=== PATIENT | female | born 1935 | race Caucasian/White ===

== ENCOUNTER 2018-09-09 15:22 | Emergency (ER) | payer MEDICARE, BC, SELFPAY ==
[2018-09-09 15:27] VITALS: BP 148/83; PULSE 99; RESP 18; TEMP 36.7; O2SAT 100
--- NOTE | 2018-09-09 15:58 | DI.RAD.S_ITS ---
PROCEDURE: XR CERVICAL SPINE 2V OR 3V INDICATIONS: Arm pain, tingling. TECHNIQUE: 3 view(s) of the cervical spine were acquired. COMPARISON: None. FINDINGS: Bones: No fractures or dislocations to the C7 level. The lateral masses of C1 appear intact on the odontoid view. No suspicious bony lesions. Straightening of the normal cervical lordosis. Diffuse facet arthropathy. Trace anterolisthesis of C4 on C5, and C3 on C4.. Moderate C5-C6 and C6-C7 disc degeneration. Prominent anterior right first rib costochondral calcification. Soft tissues: No prevertebral soft tissue swelling. IMPRESSION: Multilevel cervical disc degeneration and facet arthropathy, most pronounced at C5-C6 and C6-7. Diffuse facet arthropathy. Dictated by: Colby Sesay M.D. on 09/09/2018 at 17:00 Approved by: Colby Sesay M.D. on 09/09/2018 at 17:02
--- NOTE | 2018-09-09 15:58 | DI.CT.S_ITS ---
PROCEDURE: CT HEAD/BRAIN WO CON INDICATIONS: Pain, tingling in arm, intermittent. Had tia 1 month ago. TECHNIQUE: Noncontrast 4.5 mm thick angled axial sections acquired from the foramen magnum to the vertex, with coronal and sagittal reformats. For radiation dose reduction, the following was used: automated exposure control, adjustment of mA and/or kV according to patient size. COMPARISON: None. FINDINGS: Image quality: Excellent. CSF spaces: Basal cisterns are patent. No extra-axial fluid collections. The ventricles are symmetric in size and shape. Brain: No intracranial bleeds or masses. There is cerebral volume loss for age, with resultant ventricular and sulcal prominence. There are periventricular and deep white matter chronic small vessel ischemic changes. There is intracranial internal carotid artery atherosclerosis. Skull and face: Calvarium and visualized facial bones appear intact, without suspicious lesions. Sinuses: Minimal fluid in the left sphenoid sinus. IMPRESSION: No acute intracranial process. Dictated by: Colby Sesay M.D. on 09/09/2018 at 16:56 Approved by: Colby Sesay M.D. on 09/09/2018 at 16:58
--- NOTE | 2018-09-09 16:01 | ED.NEUROSD ---
HPI - Neuro Symptoms/Deficit General Chief Complaint: Neuro Symptoms/Deficit Stated Complaint: FOGGY BLOOD PRESSURE IS CRAZY Time Seen by Provider: 09/09/18 15:58 Source: patient, old records reviewed and other (friend) Mode of arrival: ambulatory Limitations: no limitations History of Present Illness HPI Narrative: Is an 82-year-old female who comes to the emergency department with complaint of feeling foggy in her thinking. Patient states that she had a TIA about a month ago. At that time she had slurred speech, her thinking was foggy or she was confused and she had weakness and numbness in her left upper extremity. Patient states she was sent to [facility] she was discharged from the emergency department but told to change from her aspirin to Plavix. Patient states she had imaging done recently that included ECHO, carotids Um and these were negative. She felt foggy and had somewhat similar symptoms complaining of pain and numbness in her arm on and was flown to [facility] for evaluation. She states that her imaging was reviewed on and she was discharged home but told to take Plavix and aspirin. Patient states she continues to have a numb feeling and pain in her arm particularly the hand and lower arm. She states that it feels almost swollen or full although she does not note any swelling. This was similar to what it felt like when she had the TIA. She states when she had the TIA she had if occult he with data warehouse specialist and picking things up and this happened sometimes but not to the same extent. She denies any current headache, no chest pain or shortness of breath. No nausea or vomiting. She has had some diarrhea but no other stool changes. 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 She has a history of mixed hyperlipidemia, no hypertension. She does not have diabetes. 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 She mentions having issues more in her extremity at nighttime but states there is no real correlation between night and day. On Anticoagulants: Yes (plavix) Related Data Home Medications Medication Instructions Recorded Confirmed ASPIRIN (Aspirin EC) 81 mg PO Q DAY #0 03/22/11 Fish Oil 2,000 mg PO #0 03/22/11 [TYLENOL] PRN #0 03/22/11 ascorbic acid (vitamin C) 500 mg PO QDAY #0 07/08/17 cyanocobalamin (vitamin B-12) 500 mcg PO #0 07/08/17 [Vitamin B-12] ibuprofen 200 mg PO PRN #0 07/08/17 melatonin 3 mg PO HS PRN #0 07/08/17 Previous Rx's Medication Instructions Recorded trazodone 0 PO HSP PRN #90 tabs 09/27/16 Disabled Parking Permit ea #1 06/23/17 diclofenac sodium [Voltaren] 1 thong TOPICAL SEE INSTRUCTIONS 07/08/17 #100 gm Allergies Allergy/AdvReac Type Severity Reaction Status Date / Time codeine [CODEINE] Allergy Intermediate GI UPSET Verified 09/09/18 16:27 Review of Systems Review of Systems All systems reviewed & are unremarkable except as noted in HPI and below Constitutional Denies fever(s), Denies headache(s) and Denies weakness Eyes Denies change in vision ENT Ears, Nose, Mouth, and Throat: Denies headache(s) and Denies disequilibrium Cardiovascular Denies chest pain, Denies syncope, Reports edema (chronic in leg), Denies irregular heart rhythm, Denies lightheadedness, Denies palpitations, Denies dyspnea and Denies orthopnea Respiratory Denies chest congestion, Denies cough and Denies dyspnea Gastrointestinal Gastrointestinal: Denies abdominal pain, Denies change in bowel habits, Reports diarrhea (intermittent), Denies nausea and Denies vomiting Genitourinary Denies hematuria, Denies flank pain, Denies urinary incontinence and Denies urinary urgency Musculoskeletal Denies atrophy, Denies deformity, Denies arthralgias, Denies joint swelling, Denies limited range of motion, Reports muscle weakness (when had TIA 1 month ago), Reports numbness (decreased sensation) and Reports other (pain right lower arm.) Integumentary/Breasts Denies lesions and Denies rash Neurologic Denies syncope, Denies headache(s), Reports focal weakness (TIa 1 month ago.), Reports numbness (decreased sensation), Reports paresthesias, Denies disequilibrium and Denies weakness Endocrine Denies palpitations [facility] Social History Smoking Status: Never smoker Exam Narrative Exam Narrative: GEN: well nourished, well appearing elderly female, alert and oriented x 3, patient appears to be in no acute distress. HEENT: Atraumatic, pupils are equal round reactive to light, extraocular movements are intact,no facial droop, no dysarthria HEART: Regular rate and rhythm without murmur, clicks, rubs. Pulses are equal in upper and lower extremities LUNGS:Lungs clear to auscultation, no wheezes, rales, crackles, chest moves symmetrically ABD:bowel sounds normal, soft, non-tender, no guarding, rebound, rigidity, no masses noted, no hepatosplenomegaly MSCL: Non-tender, no muscle atrophy, muscles strength 5/5 upper and lower extremities, data integration architect equal bilateral upper extremities, full range of motion NEURO:CN 2-12 intact, sensation normal bilateral upper extremities and hands, reflexes 2/4 upper and lower extremities. finger nose finger test normal, heel arnett test normal, romberg normal Initial Vital Signs Initial Vital Signs: Vital Signs Temperature 98.1 F 09/09/18 15:27 Pulse Rate 99 H 09/09/18 15:27 Respiratory Rate 18 09/09/18 15:27 Blood Pressure 148/83 H 09/09/18 15:27 Pulse Oximetry 100 09/09/18 15:27 Course Orders Ordered: ED Orders 09/09/18 15:58 CT head/brain wo con Stat XR cervical spine 2V or 3V Stat EKG-12 Lead Stat 09/09/18 16:05 Complete Blood Count AUTO DIFF Stat Comprehensive Metabolic Panel Stat Partial Thromboplastin Time Stat Prothrombin Time INR Stat Troponin I Stat Discontinued Medications Sodium Chloride (Normal Saline 0.9%) 1,000 mls @ 150 mls/hr IV CONT CHANELL Last Infusion: 09/09/18 18:04 Dose: 0 mls/hr Admin: 09/09/18 16:27 Dose: 150 mls/hr Vital Signs - 8 hr 09/09/18 15:27 09/09/18 16:13 09/09/18 16:45 Temperature 98.1 F Pulse Rate 99 H 85 88 Respiratory Rate 18 15 19 Blood Pressure 148/83 H Blood Pressure [Left Arm] 149/79 H 135/52 L Pulse Oximetry 100 98 99 09/09/18 17:00 09/09/18 17:50 09/09/18 18:05 Temperature Pulse Rate 87 93 H 98 H Respiratory Rate 18 23 Blood Pressure 158/68 H Blood Pressure [Left Arm] 109/46 L 158/68 H Pulse Oximetry 100 100 MDM - Neuro Symptoms/Deficit Lab Data Attestation: I reviewed the patient's lab results. Result diagrams: 09/09/18 16:05 09/09/18 16:05 Lab Results 09/09/18 09/09/18 09/09/18 Range/Units 16:05 16:05 16:05 WBC 6.0 (4.5-11.0) X10^3/uL RBC 4.28 (4.0-5.2) X10^6/uL Hgb 13.3 (12.0-16.0) g/dL Hct 40.7 (36-46) % MCV 95.0 (80-100) fL MCH 31.1 (26-34) PG MCHC 32.8 (30-36) % RDW 12.8 (11.6-14.8) % Plt Count 216 (150-400) X10^3/uL Neut % (Auto) 60.4 (50-75) % Lymph % (Auto) 30.0 (25-40) % [place] % (Auto) 8.0 (3-14) % Eos % (Auto) 0.9 L (2-4) % Baso % (Auto) 0.7 (0-2) % Neut # (Auto) 3600 (6286-9293) /uL PT 11.9 (10.1-12.7) SECONDS INR 1.1 (0.9-1.3) APTT 29 (26.4-36.2) SECONDS Sodium 144 (137-145) mmol/L Potassium 3.8 (3.4-5.1) mmol/L Chloride 105 (98-107) mmol/L Carbon Dioxide 27 (22-32) mmol/L BUN 11 (7-17) mg/dL Creatinine 0.50 L (0.52-1.04) mg/dL Estimated GFR > 60.0 (>60) mL/min BUN/Creatinine Ratio 22.0 (6-22) Glucose 104 (80-110) mg/dL Calcium 8.7 (8.4-10.2) mg/dL Total Bilirubin 0.3 (0.2-1.3) mg/dL AST 25 (14-36) IU/L ALT 24 (9-52) IU/L Alkaline Phosphatase 153 H (38-126) U/L Troponin I < 0.012 (0.01-0.034) ng/mL Total Protein 6.7 (6.3-8.2) g/dL Albumin 4.2 (3.5-5.0) g/dL Globulin 2.5 (1.7-4.1) g/dL Albumin/Globulin Ratio 1.7 (1.0-2.8) Urine Dip Bedside Urine Glucose Negative Bedside Urine Bilirubin - Negative Bedside Urine Ketone - Negative Urine Specific [place] 1.025 Bedside Urine Occult Blood - Negative Bedside Urine pH 6.0 Bedside Urine Protein - Negative Bedside Urine Urobilinogen - Negative Bedside Urine Nitrite - Negative Bedside Urine Leukocytes - Negative Esterase Imaging Data CT scan - head: Radiologist's impression: [address] [address] [address] Scan Report Signed Patient: Pennie MonteroMR#: [id number] : 4Acct:[id number] Age/Sex: 82 / FDate of Service: 09/09/18 Loc: ED Accession Number: [id number] Procedure: CT head/brain wo con Ordering Provider: Jessica Alvarez D.O. PROCEDURE: CT HEAD/BRAIN WO CON INDICATIONS: Pain, tingling in arm, intermittent. Had tia 1 month ago. TECHNIQUE: Noncontrast 4.5 mm thick angled axial sections acquired from the foramen magnum to the vertex, with coronal and sagittal reformats. For radiation dose reduction, the following was used: automated exposure control, adjustment of mA and/or kV according to patient size. COMPARISON: None. FINDINGS: Image quality: Excellent. CSF spaces: Basal cisterns are patent. No extra-axial fluid collections. The ventricles are symmetric in size and shape. Brain: No intracranial bleeds or masses. There is cerebral volume loss for age, with resultant ventricular and sulcal prominence. There are periventricular and deep white matter chronic small vessel ischemic changes. There is intracranial internal carotid artery atherosclerosis. Skull and face: Calvarium and visualized facial bones appear intact, without suspicious lesions. Sinuses: Minimal fluid in the left sphenoid sinus. IMPRESSION: No acute intracranial process. Dictated by: Colby Sesay M.D. on 09/09/2018 at 16:56 Approved by: Colby Sesay M.D. on 09/09/2018 at 16:58 C-spine x-ray: Radiologist's impression: [address] [address] XRay Report Signed Patient: Pennie MonteroMR#: [id number] : 1935Acct:[id number] Age/Sex: 82 / FDate of Service: 09/09/18 Loc: ED Accession Number: [id number] Procedure: XR cervical spine 2V or 3V Ordering Provider: Jessica Alvarez D.O. PROCEDURE: XR CERVICAL SPINE 2V OR 3V INDICATIONS: Arm pain, tingling. TECHNIQUE: 3 view(s) of the cervical spine were acquired. COMPARISON: None. FINDINGS: Bones: No fractures or dislocations to the C7 level. The lateral masses of C1 appear intact on the odontoid view. No suspicious bony lesions. Straightening of the normal cervical lordosis. Diffuse facet arthropathy. Trace anterolisthesis of C4 on C5, and C3 on C4.. Moderate C5-C6 and C6-C7 disc degeneration. Prominent anterior right first rib costochondral calcification. Soft tissues: No prevertebral soft tissue swelling. IMPRESSION: Multilevel cervical disc degeneration and facet arthropathy, most pronounced at C5-C6 and C6-7. Diffuse facet arthropathy. Dictated by: Colby Sesay M.D. on 09/09/2018 at 17:00 Approved by: Colby Sesay M.D. on 09/09/2018 at 17:02 ECG Data Attestation: I personally reviewed and interpreted this ECG as follows: Interpretation: Sinus rhythm with a rate of 89, P are 163 QRS of 92 and QTC of 388. nonspecific change. MDM Narrative Medical decision making narrative: reviewed patient's hospital stay from 09/07/2018 which patient was treated for TIA. Patient was discharged home from the ED. She had CT Um as well as lab work done which showed no acute changes. There was some central atrophy and small-vessel ischemic changes. Patient has had what she describes more as pain in her left upper extremity. She had weakness and difficulty with data warehouse specialist when she had her TIA but has not had any clear weakness. She states she has decreased sensation but on physical exam she has normal sensation and tells me it feels the same on left versus right. By her description I suspect she may be having some radiculopathy, CT of the head was negative today, C-spine x-ray shows some C5 through C7 degenerative disc changes which may be causing some cervical radiculopathy. I discussed with patient and her friend at bedside that I cannot guarantee that there is not another cause. We did discuss that getting an MRI possibly of the brain as well as the spine may be helpful to delineate her symptoms, From radiculopathy versus CVA versus multiple TIAs although she is not having any other major symptoms. She is not having any swelling or other symptoms that are concerning for DVT. I did encourage her to continue her aspirin as well as Plavix. She is not having any other focal neurologic changes Um and have none on her physical exam today. Patient is comfortable with this plan in returning home at this time. Plan for her to follow up with her primary care physician. She thought she may have had an MRI at [facility] but is unsure. Discharge Plan Departure Patient Disposition: Home Clinical Impression: Arm pain, left Discharge Date/Time: 09/09/18 18:04 Interventions: ED Discharge Assessment Last Done: 09/09/18 18:05 Activity Restrictions/Additional Instructions: Follow up with Dr. Hansen in the next 3-5 days for recheck. Talk with your physician about if MRI if brain and/or neck would be appropriate for follow up imaging. Continue your aspirin and plavix. You may take tylenol as needed for pain. Return to ER for new weakness, swelling of your arm, color changes, chest pain, shortness of breath, passing out or new concerning symptoms. Prescriptions: No Action ASPIRIN (Aspirin EC) 81 mg PO Q DAY Qty: 0 RF: 0 Fish Oil 2,000 mg PO Qty: 0 RF: 0 [TYLENOL] PRN Qty: 0 RF: 0 trazodone 100 MG tablet PO HSP PRNQty: 90 RF: 3 Disabled Parking Permit Qty: 1 RF: 0 ibuprofen 200 MG capsule 200 mg PO PRNQty: 0 RF: 0 melatonin 3 MG tablet 3 mg PO HS PRNQty: 0 RF: 0 cyanocobalamin (vitamin B-12) [Vitamin B-12] 500 MCG lozenge 500 mcg PO Qty: 0 RF: 0 ascorbic acid (vitamin C) 500 MG tablet 500 mg PO QDAY Qty: 0 RF: 0 diclofenac sodium [Voltaren] 1 % gel 1 thong Topical SEE INSTRUCTIONS Qty: 100 RF: 1
[2018-09-09 16:13] VITALS: BP 149/79; PULSE 85; RESP 15; O2SAT 98
--- NOTE | 2018-09-09 16:15 | PC.NURSE ---
pt reports, hx of tia 4 weeks ago, a week later developed base of thumb and all fingers with numbness, not weakness, denies injuries/trauma. radial pulses present. denies headache, denies visual changes, denies balance issue, fast exam negative. female at bs.
[2018-09-09 16:16] LABS: Add Manual Diff / Slide Review NO; Basophils Percent Auto 0.7 % (0-2); Eosinophils Percent Auto 0.9 % (2-4); Hematocrit 40.7 % (36-46); Hemoglobin 13.3 g/dL (12.0-16.0); Mean Corpuscular HGB Conc 32.8 % (30-36); Mean Corpuscular Hemoglobin 31.1 PG (26-34); Neutrophils Absolute Auto 3600 /uL (3000-5900); Neutrophils Percent Auto 60.4 % (50-75); Platelet Count 216 X10^3/uL (150-400); Red Blood Cell Count 4.28 X10^6/uL (4.0-5.2); Red Cell Distribution Width 12.8 % (11.6-14.8)
[2018-09-09 16:23] LABS: Alanine Aminotransferase 24 IU/L (9-52); Albumin 4.2 g/dL (3.5-5.0); Albumin Globulin Ratio 1.7 (1.0-2.8); Alkaline Phosphatase 153 U/L (38-126); Aspartate Aminotransferase 25 IU/L (14-36); Bilirubin Total 0.3 mg/dL (0.2-1.3); Blood Urea Nitrogen 11 mg/dL (7-17); Calcium 8.7 mg/dL (8.4-10.2); Carbon Dioxide 27 mmol/L (22-32); Chloride 105 mmol/L (98-107); Estimated Glomerular Filt Rate > 60.0 mL/min (>60); Globulin 2.5 g/dL (1.7-4.1); Glucose 104 mg/dL (80-110); HEMOLYSIS < 15 (0-50); Potassium 3.8 mmol/L (3.4-5.1); Sodium 144 mmol/L (137-145); Total Protein 6.7 g/dL (6.3-8.2)
[2018-09-09] MEDS: SODIUM CHLORIDE 0.9% 1,000 ML 150 ML IV (16:27)
[2018-09-09 16:35] LABS: INR 1.1 (0.9-1.3); PTT Partial Thromboplastin Tim 29 SECONDS (26.4-36.2); Prothrombin Time 11.9 SECONDS (10.1-12.7)
[2018-09-09 16:45] VITALS: BP 135/52; PULSE 88; RESP 19; O2SAT 99
[2018-09-09 17:00] VITALS: BP 109/46; PULSE 87; RESP 18; O2SAT 100
[2018-09-09 17:15] LABS: Troponin I < 0.012 ng/mL (0.01-0.034)
--- NOTE | 2018-09-09 17:33 | PC.NURSE ---
with cane, slow but with steady gait.
[2018-09-09 17:50] VITALS: BP 158/68; PULSE 93; RESP 23; O2SAT 100
--- NOTE | 2018-09-09 17:50 | PC.NURSE ---
dr stevenson at . pt tolerating drinking water po.
[2018-09-09 18:05] VITALS: BP 158/68; PULSE 98
== END 2018-09-09 18:04 | disposition home or self-care (01) ==
PROVIDERS: Emergency Provider Emergency Medicine; Family Provider Family Medicine; PCP Family Medicine
DX: M79.602 Pain in left arm (principal); R41.82 Altered mental status, unspecified
CPT/HCPCS: 36591; 70450; 72040; 80053; 81003; 84484; 85025; 85610; 85730; 93005; 93041; 96360; 96361; 99285; 99291

== ENCOUNTER 2019-01-01 11:44 | Inpatient (IN) | payer MEDICARE, BC, SELFPAY ==
[2019-01-01] VITALS (18 sets, daily range): BP systolic 87–151; BP diastolic 35–79; PULSE 67–100; RESP 12–20; TEMP 35.6–36.5; O2SAT 91–99; BMI 33.5
--- NOTE | 2019-01-01 | DI.RAD.S_ITS ---
PROCEDURE: XR HIP W PEL IF DONE RT 2V INDICATIONS: RIGHT TOTAL HIP POST OPERATIVE TECHNIQUE: 2 view(s) of the hip acquired. COMPARISON: [facility], [facility], XR HIP W PEL IF DONE RT 2V, 01/01/2019, 16:29. FINDINGS: Bones: Patient is status post right hip arthroplasty, with hardware components in expected positions. The hip joint appears congruent. The visualized bony structures appear intact. Soft tissues: Overlying postoperative changes are noted. No suspicious soft tissue densities. IMPRESSION: Expected appearance post total right hip arthroplasty. Dictated by: Luis Acuna M.D. on 01/01/2019 at 19:09 Approved by: Luis Acuna M.D. on 01/01/2019 at 19:10
--- NOTE | 2019-01-01 06:00 | DI.RAD.S_ITS ---
PROCEDURE: XR HIP W PEL IF DONE RT 2V INDICATIONS: right total hip TECHNIQUE: AP pelvis and lateral view of the right hip acquired. COMPARISON: [facility], [place], XR HIP W PEL IF DONE RT 2V, 01/01/2019, 17:53. [facility], [place], XR PELVIS WITH LATERAL HIP RIGHT, 10/20/2018, 13:18. FINDINGS: Bones: Patient is status post right hip arthroplasty, with hardware components in expected positions. The hip joint appears congruent. The visualized bony structures appear intact. Soft tissues: Overlying postoperative changes are noted. No suspicious soft tissue densities. IMPRESSION: 1. Right hip arthroplasty in anatomic alignment. Dictated by: Maggie Poole M.D. on 01/02/2019 at 11:26 Approved by: Maggie Poole M.D. on 01/02/2019 at 11:27
[2019-01-01] MEDS: ACETAMINOPHEN 325 MG TABLET 975 MG PO (12:57)
[2019-01-01] MEDS: VANCOMYCIN 1,000 MG/200 ML FROZ.PIGGY 200 MG IV (13:33)
--- NOTE | 2019-01-01 14:40 | PM.PREOP ---
Pre-operative Note Interval Note History & Physical reviewed/Exam performed by Physician: Yes Changes to H&P: No
--- NOTE | 2019-01-01 14:45 | P.OP_ITS ---
Operative Date/Time/Diagnoses Date of procedure: 01/01/19 Time of procedure: 14:59 Pre-op diagnosis: right hip OA Post-op diagnosis: same Procedure & Clinicians Procedure: right total hip arthroplasty Same procedure as scheduled: Yes Indications: severe right hip osteoarthritis with ongoing pain. risk of complications including dislocation, infection, fracture and medical complications discussed in detail. Surgeon: Yovana Whiteside Information Security Engineer: Mikael Langley Anesthesia Type: General and Spinal Operative Notes Findings: Severe right hip osteoarthritis Closure Type: primary Specimen(s): none sent Prosthetic devices, grafts, tissues, transplants, or devices: Whiteside and Nephew R3 56, anthology size 8 high offset, -3 by 36 Applied: drain(s) Estimated Blood Loss (mL): 250 Blood products transfused: none Procedure in detail: The patient was seen in the pre-operative area, where the patient identified the right hip as the operative site and this was marked with my initials. The patient received pre-operative antibiotics and was taken to the operating room and placed on the operative table in the left lateral decubitus position after satisfactory anesthesia. A multimedia manager out was performed. The right leg was prepared from the ankle to the iliac crest with ChloroPrep in the usual fashion and draped through sterile drapes. The hip was approached through an approximately 20 cm incision centered over the greater trochanter and curving gently posteriorly as it went proximally. This was carried sharply to the fascia lakisha, which was divided and retracted with a self retaining retractor. The trochanteric bursa was excised with care being taken to avoid the sciatic nerve, which was identified and protected throughout the case. The short external rotators were incised and the capsulomuscular flap was raised and tagged for later repair. The hip was dislocated, and a femoral neck osteotomy performed approximately 15 mm above the lesser trochanter. Retractors were placed around the femur. The canal was opened with a box cutting osteotome, followed by a T handled reamer and a lateralizing reamer. The chili pepper broach was then used, followed by sequential broaching until there was good stability of the broach in the femur. Retractors were placed to expose the acetabulum. The labrum and central soft tissues were removed. Reaming was performed initially going up in 2 mm increments, then 1 mm increments until good bite was obtained with an odd sized reamer. The cup 1 mm larger than the last reamer was then inserted using the appropriate anteversion guides. A trial neutral liner was placed. The broach was placed in the canal. A trial head and neck were then placed and the hip relocated and checked for leg length and stability. An intraoperative film confirmed the component position and no evidence of fracture. The patient was stable in the position of sleep, of squatting, and could be put through a range of motion with 45 degrees internal rotation without dislocation. At 90 degrees flexion, internal rotation to 60 was possible before dislocation. This was felt to be satisfactory and the appropriate components were opened, and the trials were removed. The acetabular liner was impacted into position. The final stem was then impacted into the prepared femoral canal. A brief Betadine soak was performed while trialing with head options. The hip was meticulously irrigated with normal saline. Finally the femoral head was impacted onto the stem. The acetabulum was cleared of all material and the hip relocated one final time. The capsulomuscular flap was then repaired to the greater trochanter though an awl hole using the tag sutures. The short external rotators were repaired with a nonabsorbable suture. A deep drain was placed and brought out anteriorly. The fascia lakisha was closed with Vicryl. The subcutaneous layer was closed with barbed sutures and [place]. An Aquacel Ag dressing was applied and the patient was taken to recovery having tolerated the procedure well. Complications: none Condition: stable Disposition: Acute Care Plan for aftercare: The patient will be maintained on a standard total hip replacement protocol with weight bearing as tolerated and posterior hip precautions. The patient will receive Aspirin and sequential compression devices for DVT prophylaxis. The patient will be discharged home when safe for the home environment.
[2019-01-01] MEDS: CEFAZOLIN 2 GM/100 ML FROZ.PIGGY IV (15:20)
--- NOTE | 2019-01-01 15:55 | SUR.OPER ---
Lateral on padded OR bed. Gel axillary roll. Arms secured on padded armboard with pillow supporting top arm. Padded hip positioner braces x4 - anterior and posterior chest and pelvis. Additional gel pad used anterior pelvis. Gel pad under bottom leg from knee to foot and secured with tape over sheet.
[2019-01-01] MEDS: BUPIVACAINE 0.25% W/ EPI VIAL 50 ML INJ (16:05)
[2019-01-01] MEDS: SODIUM CHLORIDE IRRIG SOLUTION 250 ML, EPINEPHrine 1 MG IRR (16:05)
[2019-01-01] MEDS: POVIDONE-IODINE 15 ML, SODIUM CHLORIDE 0.9% 250 ML TOP (16:06)
[2019-01-01] MEDS: BUPIVACAINE LIPOSOME 266 MG/20 ML VIAL INJ (16:09)
--- NOTE | 2019-01-01 16:10 | SUR.OPER ---
GLASSES IN LABELED BAG TO PACU WITH PATIENT
[2019-01-01] MEDS: LACTATED RINGERS 1,000 ML 42 ML IV (17:03)
--- NOTE | 2019-01-01 18:09 | SUR.PHASEI ---
Repetitive questions when awake. When asleep sats drop to <90%, but awake to mid 90's on NC 4L.
--- NOTE | 2019-01-01 18:45 | SUR.PHASEI ---
IVF opened on arrival due to low BPs. Preop SBP >150. Once patient awake, she related normal BPs in 110's. Fluids reduced. Stable PACU course excepting some decreased sats with somnolent states and will transfer with NC 2L. No shivering. No pain.
[2019-01-01] MEDS: TRAMADOL 50 MG TABLET PO (21:41)
--- NOTE | 2019-01-01 22:13 | PC.NURSE ---
Addendum entered and electronically signed by Jessica Stout R.N. 01/01/19 23:22: 2300- Hemovac 150cc output. Surgeon paged; no new orders received. Original Note: 1899- Pt arrived from PACU PO R knee arthroplasty w/ hemovac in place. Arrived on 2L w/ sats @ 100%; weaned down to 1L. Denies pain at this time, pt had spinal block during procedure. Pulses palpable on both feet; family at bedside. Daughter states pt has baseline dementia. NO BP & LAB DRAWS ON L SIDE. 2009- Assessment complete; new order for diet as tolerated. Pudding & cocoa drink given to pt and tolerated w/ no nausea reported. 2099- PO tramadol given to pt and swallowed w/o difficulty. Daughter left for the night, bed alarm applied. Pt tolerating toast & peanut butter.
[2019-01-02 00:55] VITALS: BP 166/70; PULSE 104; RESP 19; O2SAT 96
--- NOTE | 2019-01-02 01:00 | PC.NURSE ---
Addendum entered by Andie Mckay R.N. 01/02/19 04:58: 0330 Voided 125cc on bed smith, plus incontinent of some urine on bedding. Tried on RA but sats dropped down as low as 84% so back on 0.5L/min with sat of 94%. Original Note: Patient is alert and oriented. Breath sounds CTA with sat of 98% while on oxygen at 1L/min per NC; decreased O2 to 0.5L/min. HRR. Denies nausea. BT absent and denies flatus. 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 Dressing to right hip is CDI. Hemovac was intact but during repositioning patient pulled hemovac apart. Reconnected but uncertain if suction is functional anymore. Denies pain. Was able to turn self in bed. CMS intact although pedal pulses are weak. Wearing bilateral SCD's. Fall risk score is high and bed alarm is activated.
[2019-01-02 06:00] VITALS: BP 111/47; PULSE 75; RESP 17; TEMP 36.3; O2SAT 99
[2019-01-02 09:00] VITALS: PULSE 82; RESP 16; TEMP 35.8; O2SAT 97
[2019-01-02] MEDS: SODIUM CHLORIDE 0.9% FLUSH 10 ML IV ×2 (09:14→20:30)
[2019-01-02] MEDS: CLOPIDOGREL 75 MG TABLET PO (09:14)
[2019-01-02] MEDS: ATORVASTATIN 20 MG TABLET 40 MG PO (09:14)
[2019-01-02] MEDS: TRAMADOL 50 MG TABLET PO ×2 (09:18→20:32)
[2019-01-02 09:19] LABS: Hematocrit 29.1 % (36-46); Hemoglobin 9.7 g/dL (12.0-16.0); Mean Corpuscular HGB Conc 33.4 % (30-36); Mean Corpuscular Volume 95.7 fL (80-100); Platelet Count 250 X10^3/uL (150-400); Red Blood Cell Count 3.04 X10^6/uL (4.0-5.2); White Blood Cell Count 11.1 X10^3/uL (4.5-11.0)
--- NOTE | 2019-01-02 09:23 | PM.PNPO.1 ---
Subjective Date Patient Seen: 01/02/19 Time Patient Seen: 09:23 Interval history: Hospital day 2, postop day 1 following right posterior total hip arthroplasty by Dr. Whiteside. Patient remained stable postoperatively. Her Hemovac did come apart during the night was restarted with good vacuum. Hemovac drainage last shift 60 mL. Pain is been minimal and did take 1 tramadol tablet. She has not had any physical therapy yet. Patient lives on [place] and is scheduled to go to [facility]. She does have a daughter at home that will help her. Exam Vital Signs (past 8 hours): - 01/02/19 06:00 Temperature 97.4 F L Pulse Rate 75 Respiratory Rate 17 Blood Pressure 111/47 L Pulse Oximetry 99 Oxygen Delivery Method Nasal Cannula Oxygen Flow Rate 0.5 Narrative Exam Narrative: Alert, oriented no acute distress resting in bed. Legs. Aquacel dressing to right hip is dry without drainage or inflammation. Small area of shadowing. Hemovac in place. No calf pain or swelling. Pulses symmetrical. Objective Labs Result Diagrams: 01/02/19 08:50 Assessment & Plan Post-op Postoperative Procedures Operation Date: 01/01/19 13:45 Actual Procedures Side Surgeon p Total Hip Arthroplasty Right Yovana Whiteside MD Plan: Patient will work with PT today. Anticipate DC Hemovac once her drainage has decreased. Anticipate discharge home possibly tomorrow the next day if she is stable. Quality VTE Deep Vein Thrombosis/Pulmonary Embolism Present on Admission: No
--- NOTE | 2019-01-02 09:26 | P.PN_ITS ---
Subjective Date Patient Seen: 01/02/19 Time Patient Seen: 09:23 Interval history: Hospital day 2, postop day 1 following right posterior total hip arthroplasty by Dr. Whiteside. Patient remained stable postoperatively. Her Hemovac did come apart during the night was restarted with good vacuum. Hemovac drainage last shift 60 mL. Pain is been minimal and did take 1 tramadol tablet. She has not had any physical therapy yet. Patient lives on [place] and is scheduled to go to [facility]. She does have a daughter at home that will help her. Exam Vital Signs (past 8 hours): - 01/02/19 06:00 Temperature 97.4 F L Pulse Rate 75 Respiratory Rate 17 Blood Pressure 111/47 L Pulse Oximetry 99 Oxygen Delivery Method Nasal Cannula Oxygen Flow Rate 0.5 Narrative Exam Narrative: Alert, oriented no acute distress resting in bed. Legs. Aquacel dressing to right hip is dry without drainage or inflammation. Small area of shadowing. Hemovac in place. No calf pain or swelling. Pulses symmetrical. Objective Labs Result Diagrams: 01/02/19 08:50 Assessment & Plan Post-op Postoperative Procedures Operation Date: 01/01/19 13:45 Actual Procedures Side Surgeon p Total Hip Arthroplasty Right Yovana Whiteside MD Plan: Patient will work with PT today. Anticipate DC Hemovac once her drainage has decreased. Anticipate discharge home possibly tomorrow the next day if she is stable. Quality VTE Deep Vein Thrombosis/Pulmonary Embolism Present on Admission: No
[2019-01-02] MEDS: DOCUSATE 100 MG CAPSULE PO ×2 (09:31→20:30)
[2019-01-02] MEDS: SENNOSIDES 8.6 MG TABLET PO ×2 (09:32→20:30)
--- NOTE | 2019-01-02 10:37 | CM.DANOTE ---
DCP: Case received, EMR reviewed and met with patient. Introduced self and role. DCP template completed with information currently available. Patient is an 83 year old female who admitted yesterday morning to the care of the surgical team. PCP: Dr. Hansen. Payer: confirmed: Medicare/BCBS [facility]. Patient came to hospital for surgical procedure. Had R. Total Hip surgery. Met with patient in her room. Her daughter, Javier, is here from [place]. She plans on staying with her on [place] after her surgery. She gave her phone number: [phone]. Patient has history of osteoarthritis, as well as Polio. Asked her if she had caregivers in the home, which was stated in the report. Stated, she does not, but she lives in [place] with plenty of neighbors, and has advocates. She already has outpatient physical therapy set up. Has not yet worked with physical therapy. P: DCP to continue to follow. Should be able to go home when stable, but will also need to be cleared by physical therapy as well. Magi Cruz RN/[employer]inery [employer] Worker
[2019-01-02] MEDS: CEFAZOLIN 2 GM/100 ML FROZ.PIGGY IV ×2 (10:58→20:58)
--- NOTE | 2019-01-02 11:40 | PT.IIE ---
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 (01/01/19) Surgery Performed Operation Date: 01/01/19 13:45 Actual Procedures p Total Hip Arthroplasty(Right) - Yovana Whiteside MD Physical Therapy Inpatient Evaluation/Re-Eval M1 PT/OT-IP Prior Functional Status Start: 01/02/19 10:36 Freq: NEEDED Status: Active Protocol: Document 01/02/19 11:40 RS (Rec: 01/02/19 15:09 RS [id number]) Medical Review Prior Functional Status Medical History Reviewed Yes Diet/Fluid Consistency Regular Communication no known deficits Mobility and Gait mod ind w/ 4WW, denies recent falls Activities of Daily Living and IADL's mod ind to ind w/ self-care activities Social History Household Members none Living Arrangements House Number of Floors (Floors) One Floor Number of Stairs To Enter/Railing? 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 but currently lives in a [facility] [place] community on [address] where she intends to live forever, dtr will be providing initial 24/7 assist M2 PT-IP Current Condition Start: 01/02/19 10:36 Freq: NEEDED Status: Active Protocol: Document 01/02/19 11:40 RS (Rec: 01/02/19 15:09 [id number]) Physical Therapy Current Condition Current Condition Evaluation Date 01/02/19 Treatment Diagnosis R posterior VIN - impaired mobility Onset Date 01/01/19 Precautions Posterior Hip Precautions No Hip Flexion > 90 degrees No Hip Internal Rotation No Hip Adduction Weight Bearing Status Weight Bearing Status Weight Bear as Tolerated M3 PT-IP Subjective Start: 01/02/19 10:36 Freq: NEEDED Status: Active Protocol: Document 01/02/19 11:40 RS (Rec: 01/02/19 15:09 RS [id number]) Subjective Physical Therapy Visit Type Type Initial Evaluation Visit Start Time 10:00 Visit Stop Time 11:40 Total Visit Minutes 100 Physical Therapy Visit Comments Patient Comments Pt reports minimal pain so far , is eager to get started. Patient Goals go home Therapy Pain Assessment Pain When Pain Assessed At Rest Pain Present Pain Present Denied Pain M4 PT-IP Mobility and Gait Start: 01/02/19 10:36 Freq: NEEDED Status: Active Protocol: Document 01/02/19 11:40 RS (Rec: 01/02/19 15:09 RS [id number]) PT-Bed Mobility Assessment Supine to Sit Supine to Sit Standby Assistance Scooting Scooting to Edge of Bed Standby Assistance PT-Transfer Assessment Sit to and From Stand Sit to and from Stand Minimal Assistance 1 Person Assistance Use of Upper Extremities Equipment Transfer Assistive Device Gait Belt Front Wheeled Walker Transfers Transfer Destination Chair Transfer Technique walked Transfer Ability Level of Assist Contact Guard Assistance 1 Person Assistance Use of Upper Extremities Comments Mobility Comments Pt able to pop right up in long sit but might benefit from using a gait belt at home to help pull her up just to reduce tension. Pt liked this idea a lot. Pt had initial impaired balance on first standing attempt, very shaky, but there was an orthostatic drop as well. After seated rest and more BLE AROM in sitting pt able to stand back up without symptoms and no further drops, CGA the remainder of the session for transfers. Gait Assessment Gait Gait Assistance Required: Contact Guard Assist Distance (Feet) 70 Assistive Devices Assistive Device Gait Belt Front Wheeled Walker Gait Deviations General Gait Pattern Antalgic Factors Limiting Gait Function Factors Limiting Gait Function Decreased Strength Pain Comments Gait Comments Once pt got going her gait pattern was actually quite good. Pt reports she's walking better now than she was before the surgery. Pt has significant genu valgus ( chronic). Pt's steps are fluid and essentially symmetrical already, very steady, no LOB. while using FWW Stair Climbing Assessment Comments Stair Climbing Comments not tested PT-Balance Assessment Sitting Balance and Reactions Static Sitting Balance Ability Normal Dynamic Sitting Balance Ability Good Standing Balance and Reactions Static Standing Balance Ability Good Dynamic Standing Balance Ability Good Device Used FWW M5 PT-IP Objective Assessments Start: 01/02/19 10:36 Freq: NEEDED Status: Active Protocol: Document 01/02/19 11:40 RS (Rec: 01/02/19 15:09 RS [id number]) Orientation Orientation/Cognition Level of Alertness Alert Orientation Name Age Birthday Month Date Year Day of Week Place Situation Language Function Ability No Deficits Noted Safety Awareness Understands Safety Issues Gross Range of Motion Upper Extremity ROM Assessment Within Functional Limits Lower Extremity ROM Assessment Within Functional Limits Impairments within hip precautions Strength Upper Extremity Strength Assessment Within Functional Limits Lower Extremity Strength Assessment Right Impaired Comments Strength Comments RLE not formally tested, functionally demonstrating at least 3+/5 grossly Sensation Assessment Sensation Light Touch Intact M6 PT-IP Treatment Start: 01/02/19 10:36 Freq: NEEDED Status: Active Protocol: Document 01/02/19 11:40 RS (Rec: 01/02/19 15:09 [id number]) Physical Therapy Treatment Exercises Exercises Ankle Pumps Gluteal Sets Quad Sets Heel Slides Supine Hip Abduction Education Education Provided Precautions Weight Bearing Status Post-Op Packet Safety M7 PT-IP Assessment and Plan Start: 01/02/19 10:36 Freq: NEEDED Status: Active Protocol: Document 01/02/19 11:40 RS (Rec: 01/02/19 15:09 [id number]) PT Summary Assessment and Plan Potential Rehabilitation Potential Excellent Status of Condition at Evaluation Stable Summary Impairments Strength Balance Bed Mobility Transfers Gait Activity Tolerance Assessment Summary Pt is POD#1 R posterior VIN. Pt is mobilizing well using a FWW and is quite stable overall after initial shaky orthostatic episode. Patient will be safe to discharge directly home with 24/7 assist from daughter once medically cleared to do so. Will need 1- 2 more PT sessions prior to discharge home to further progress mobility and do family training. Pt already has OPPT set up to begin January 08. Pt/family in agreement with this plan. Goals Bed Mobility Goal Standby Assistance Transfer Goal Standby Assistance Front Wheeled Walker Four Wheeled Walker Gait Goal Standby Assistance Front Wheel Walker Four Wheel Walker Gait Distance 200 Days to Meet Goals 2 Frequency of Treatment Frequency Of Treatment Twice a Day Treatment Plan Physical Therapy Treatment Plan Bed Mobility Training Transfer Training Gait Training Therapeutic Exercise Balance Retraining Post Op Education Discharge Planning Hot or Cold Pack Neuromuscular Re-ed Coordination Retraining Manual Therapy Other Recommendations and Next Treatment family training with daughter, Focus trial 4ww (pt prefers this over FWW) Recommendations To Nursing Amount of Assist Needed 1 Person Assist Discharge Recommendations PT Discharge Recommendations Home with 24/7 Assist Outpatient PT
[2019-01-02] MEDS: OXYCODONE IR 5 MG TABLET PO ×3 (12:30→20:29)
[2019-01-02] MEDS: ACETAMINOPHEN 325 MG TABLET 650 MG PO ×3 (12:30→20:29)
[2019-01-02 13:00] VITALS: BP 120/75; RESP 16; TEMP 36.3; O2SAT 98
[2019-01-02 16:01] VITALS: BP 112/53; PULSE 93; RESP 18; TEMP 36.7; O2SAT 95
--- NOTE | 2019-01-02 16:50 | PT.IPTN ---
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 (01/01/19) Surgery Performed Operation Date: 01/01/19 13:45 Actual Procedures p Total Hip Arthroplasty(Right) - Yovana Whiteside MD Physical Therapy Treatment Note M2 PT-IP Current Condition Start: 01/02/19 10:36 Freq: NEEDED Status: Active Protocol: Document 01/02/19 11:40 RS (Rec: 01/02/19 15:09 RS [id number]) Physical Therapy Current Condition Current Condition Evaluation Date 01/02/19 Treatment Diagnosis R posterior VIN - impaired mobility Onset Date 01/01/19 Precautions Posterior Hip Precautions No Hip Flexion > 90 degrees No Hip Internal Rotation No Hip Adduction Weight Bearing Status Weight Bearing Status Weight Bear as Tolerated M3 PT-IP Subjective Start: 01/02/19 10:36 Freq: NEEDED Status: Active Protocol: Document 01/02/19 15:30 RS (Rec: 01/02/19 16:50 RS [id number]) Subjective Physical Therapy Visit Type Type Treatment Note Visit Start Time 15:00 Visit Stop Time 15:30 Total Visit Minutes 30 Physical Therapy Visit Comments Patient Comments Pt reports feeling better after laying down for a rest. Therapy Pain Assessment Pain When Pain Assessed At Rest Pain Present Pain Present Denied Pain M4 PT-IP Mobility and Gait Start: 01/02/19 10:36 Freq: NEEDED Status: Active Protocol: Document 01/02/19 15:30 RS (Rec: 01/02/19 16:50 RS [id number]) PT-Bed Mobility Assessment Supine to Sit Supine to Sit Standby Assistance Sit to Supine Sit to Supine Contact Guard Assistance Scooting Scooting to Edge of Bed Standby Assistance PT-Transfer Assessment Sit to and From Stand Sit to and from Stand Contact Guard Assistance Equipment Transfer Assistive Device Gait Belt Front Wheeled Walker Transfers Transfer Destination Bed Transfer Technique walked Transfer Ability Level of Assist Contact Guard Assistance 1 Person Assistance Use of Upper Extremities Comments Mobility Comments Using gait belt atteached to foot of bed, pt able to pull self up to long sit and then pivot legs off edge of bed without physical assist. trialed use of gait belt as a leg staff reporter and pt able to do it but rushed through it, would benefit from additional practice performing this in a more controlled manner. Pt did not have any shaky or unstable episodes this time, very stable with sit<>stands but did need cues for hand position. Gait Assessment Gait Gait Assistance Required: Contact Guard Assist Distance (Feet) 150 Assistive Devices Assistive Device Gait Belt Front Wheeled Walker Gait Deviations General Gait Pattern Antalgic Factors Limiting Gait Function Factors Limiting Gait Function Decreased Strength Pain Comments Gait Comments Again, gait very fluid, minimally antalgic but did have a little limp, relatively normal gait mechanics, steady , no LOB. Pt really wants to try walking with a 4WW. Stair Climbing Assessment Evaluation Level of Assist On Stairs Contact Guard Assistance Devices Stair Climbing Assistive Devices Left Railing Right Railing Technique/Endurance Stair Climbing Direction Ascend and Descend Stair Climbing Technique Step to Step Number of Steps Climbed 3 Query Text: Comments Stair Climbing Comments needs cues for ideal stepping pattern but relatively stable when using bilat rails PT-Balance Assessment Sitting Balance and Reactions Static Sitting Balance Ability Normal Dynamic Sitting Balance Ability Good Standing Balance and Reactions Static Standing Balance Ability Good Dynamic Standing Balance Ability Good Device Used FWW M5 PT-IP Objective Assessments Start: 01/02/19 10:36 Freq: NEEDED Status: Active Protocol: Document 01/02/19 11:40 RS (Rec: 01/02/19 15:09 [id number]) Orientation Orientation/Cognition Level of Alertness Alert Orientation Name Age Birthday Month Date Year Day of Week Place Situation Language Function Ability No Deficits Noted Safety Awareness Understands Safety Issues Gross Range of Motion Upper Extremity ROM Assessment Within Functional Limits Lower Extremity ROM Assessment Within Functional Limits Impairments within hip precautions Strength Upper Extremity Strength Assessment Within Functional Limits Lower Extremity Strength Assessment Right Impaired Comments Strength Comments RLE not formally tested, functionally demonstrating at least 3+/5 grossly Sensation Assessment Sensation Light Touch Intact M6 PT-IP Treatment Start: 01/02/19 10:36 Freq: NEEDED Status: Active Protocol: Document 01/02/19 11:40 RS (Rec: 01/02/19 15:09 RS [id number]) Physical Therapy Treatment Exercises Exercises Ankle Pumps Gluteal Sets Quad Sets Heel Slides Supine Hip Abduction Education Education Provided Precautions Weight Bearing Status Post-Op Packet Safety M7 PT-IP Assessment and Plan Start: 01/02/19 10:36 Freq: NEEDED Status: Active Protocol: Document 01/02/19 15:30 RS (Rec: 01/02/19 16:50 RS [id number]) PT Summary Assessment and Plan Potential Rehabilitation Potential Excellent Status of Condition at Evaluation Stable Summary Impairments Strength Balance Bed Mobility Transfers Gait Activity Tolerance Progress Towards Goals Progressing Toward Goals Assessment Summary Pt moving well and able to tolerate longer walking distance even with addition of stairs today. 1 more PT session prior to discharge for caregiver training with daughter otherwise will be safe for home when medically ready. Goals Bed Mobility Goal Standby Assistance Transfer Goal Standby Assistance Front Wheeled Walker Four Wheeled Walker Gait Goal Standby Assistance Front Wheel Walker Four Wheel Walker Gait Distance 300 Days to Meet Goals 2 Frequency of Treatment Frequency Of Treatment Twice a Day Treatment Plan Physical Therapy Treatment Plan Bed Mobility Training Transfer Training Gait Training Therapeutic Exercise Balance Retraining Post Op Education Discharge Planning Hot or Cold Pack Neuromuscular Re-ed Coordination Retraining Manual Therapy Other Recommendations and Next Treatment family training with daughter, Focus trial 4ww (pt prefers this over FWW) Recommendations To Nursing Amount of Assist Needed 1 Person Assist Discharge Recommendations PT Discharge Recommendations Home with 30/05 Assist Outpatient PT
--- NOTE | 2019-01-02 17:25 | PC.NURSE ---
Addendum entered by Layla Suarez R.N. 01/02/19 19:29: Ambulated pt one North loop, FWW gait belt. Original Note: Pt A/O x3, up with PT FWW, no dizziness or nausea, able to ambulate in hallways after dinner. right hip aquacell DCI, HV compressed, incertion site CDI. BT+, denies nausea, tolerating reg diet. L hand SL. 95%RA, denies SOB. Slight hypotensive @ 1600, 112/53, HR- 93. Manageing pain 2-4/10 with percolone 5mg and tylenol 650mg PO. call light in reach and when in bed, alarm on. Up to chair for dinner.
[2019-01-02 20:24] VITALS: BP 111/65; PULSE 104; RESP 20; TEMP 36.7
--- NOTE | 2019-01-03 00:33 | PC.NURSE ---
Addendum entered by Andie Mckay R.N. 01/03/19 06:55: Up to bathroom this morning with walker and 1 assist then back to bed. States pain is very minimal. Hoping to DC later today. Original Note: Patient is alert and oriented. Breath sounds diminished but CTA with RA sat of 92%. HRR. Denies nausea. BT present and is passing flatus. Denies dysuria, frequency or urgency. Able to turn self in bed. Reportedly is out of bed with walker and 1 assist. Dressing to right hip is CDI. Hemovac is intact and compressed. CMS intact bilaterally. Refusing SCD's tonight. Denies pain. Fall risk score is high and bed alarm is activated.
[2019-01-03 00:50] VITALS: BP 120/58; PULSE 93; RESP 16; TEMP 36.7; O2SAT 95
[2019-01-03 04:53] VITALS: BP 119/54; PULSE 90; RESP 18; TEMP 36.7; O2SAT 93
[2019-01-03 06:27] LABS: Hemoglobin 8.4 g/dL (12.0-16.0)
[2019-01-03 07:35] VITALS: BP 124/54; PULSE 89; RESP 16; TEMP 37; O2SAT 92
[2019-01-03] MEDS: CLOPIDOGREL 75 MG TABLET PO (08:19)
[2019-01-03] MEDS: DOCUSATE 100 MG CAPSULE PO (08:19)
[2019-01-03] MEDS: ATORVASTATIN 20 MG TABLET 40 MG PO (08:19)
--- NOTE | 2019-01-03 08:46 | PM.DS.1 ---
History of Present Illness Date Patient Seen: 01/03/19 Time Patient Seen: 08:46 Chief complaint: [id number] Narrative: Hospital day 3, postop day 2 following right posterior total hip arthroplasty. Patient states she is doing well. Did well with physical therapy yesterday. Using tramadol for pain. Patient desiring to go home today. Discharge Providers Date of admission: 01/01/19 11:44 Primary care physician: Frank Hansen MD Consults: 01/01/19 06:00 Consult to Anesthesiology Routine Comment: Consulting Provider: Anesthesiologist Reason for consultation: Regional block for post operative pain control 01/02/19 10:28 Consult to Physical Therapy Evaluate & Treat Comment: Postop right posterior total hip arthroplasty Physician Instructions: Evaluate and Treat Discharge provider: Mikael Langley PA-C Discharge Date: 01/03/19 Summary Discharge Diagnosis: Status post a right posterior total hip arthroplasty Hospital Course: Patient brought to hospital on 01/01/2019 for above-noted surgery. She remained stable postoperatively. Progressed well with physical therapy. Ready for discharge home on postop day 2. Status at Discharge Cognitive/behavioral status at discharge: Alert, oriented no acute distress. Functional status at discharge: uses cane/walker Overall status at discharge: patient is progressing back to baseline Time Spent with Patient Less than 30 minutes Exam Vital Signs (past 8 hours): - 01/03/19 00:50 01/03/19 04:53 Temperature 98.1 F 98.1 F Pulse Rate 93 H 90 Respiratory Rate 16 18 Blood Pressure 120/58 L 119/54 L Pulse Oximetry 95 93 Oxygen Delivery Method Room Air Oxygen Flow Rate 0 Narrative Exam Narrative: Legs. Aquacel dressing to right hip is dry without drainage or inflammation. Hemovac in place with decreased drainage. No calf pain or swelling. Pulses symmetrical. Objective Labs Result Diagrams: 01/03/19 05:57 Labs: Laboratory Results - last 24 hr 01/02/19 01/03/19 08:50 05:57 WBC 11.1 H RBC 3.04 L Hgb 9.7 L 8.4 L Hct 29.1 L 25.0 L MCV 95.7 MCH 32.0 MCHC 33.4 RDW 14.0 Plt Count 250 Discharge Plan Discharge Plan Patient Disposition: Home Discharge Med Rec/Prescriptions Prescriptions: New tramadol 50 mg Tablet 50 mg PO BID Qty: 30 RF: 0 ascorbic acid (vitamin C) [Vitamin C] 500 mg Tablet 500 mg PO BID Qty: 60 RF: 0 ferrous gluconate 324 mg (38 mg iron) Tablet 324 mg PO BID Qty: 60 RF: 0 Continued Fish Oil 2,000 mg PO DAILY Qty: 0 RF: 0 [TYLENOL] 1,000 mg PO PRN PRN (Reason: Pain (Scale Score 1-3)) Qty: 0 RF: 0 ibuprofen 200 MG capsule 200 mg PO DAILY PRN (Reason: Pain (Scale Score 1-3)) Qty: 0 RF: 0 melatonin 3 MG tablet 3 mg PO HS PRN (Reason: Sleep) Qty: 0 RF: 0 atorvastatin [Lipitor] 40 mg Tablet 40 mg PO DAILY RF: 0 clopidogrel 75 mg Tablet 75 mg PO DAILY RF: 0 trazodone 100 MG tablet 100 mg PO HSP PRN (Reason: Sleep) RF: 0 Disabled Parking Permit kit 1 ea Not Applicable DAILY RF: 0 Discontinued tramadol 50 mg Tablet 50 mg PO BID RF: 0 Follow up/Referrals: Frank Hansen MD [Primary Care Provider] - Provider Discharge Instructions Diet: Diet as Tolerated Activity: Ambulate as tolerated. Use walker for stabilization. Posterior total hip arthroplasty precautions x6 weeks postop. Cold/Heat Therapy: Cold pack to hip as needed. Other treatments: Take vitamin-C and iron tablets daily x1 month postop to help with anemia. Skin/Wound/Dressing Care Report to your healthcare provider any signs of infection, such as:: chills, fever, night sweats, increased pain, unusual drainage and unusual redness Dressing: Keep Aquacel dressing in place until postop visit. Visit Report/Discharge Packet Instructions: DI for Hip Replacement Discharge Data Primary Care Provider: Frank Hansen Attending Provider: Yovana Whiteside Admit Date/Time: 01/01/19 11:44 Quality VTE Deep Vein Thrombosis/Pulmonary Embolism Present on Admission: No
[2019-01-03] MEDS: SENNOSIDES 8.6 MG TABLET PO (08:50)
[2019-01-03] MEDS: ASCORBIC ACID 500 MG TABLET PO (08:50)
[2019-01-03] MEDS: FERROUS GLUCONATE 324 MG TABLET PO (08:50)
[2019-01-03] MEDS: SODIUM CHLORIDE 0.9% FLUSH 10 ML IV (08:51)
[2019-01-03] MEDS: ACETAMINOPHEN 325 MG TABLET 650 MG PO ×2 (08:53→13:42)
[2019-01-03 11:20] VITALS: BP 121/68; PULSE 90; RESP 18; TEMP 36.7; O2SAT 95
--- NOTE | 2019-01-03 12:49 | PT.IPTN ---
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 (01/01/19) Surgery Performed Operation Date: 01/01/19 13:45 Actual Procedures p Total Hip Arthroplasty(Right) - Yovana Whiteside MD Physical Therapy Treatment Note M2 PT-IP Current Condition Start: 01/02/19 10:36 Freq: NEEDED Status: Active Protocol: Document 01/02/19 11:40 RS (Rec: 01/02/19 15:09 RS [id number]) Physical Therapy Current Condition Current Condition Evaluation Date 01/02/19 Treatment Diagnosis R posterior VIN - impaired mobility Onset Date 01/01/19 Precautions Posterior Hip Precautions No Hip Flexion > 90 degrees No Hip Internal Rotation No Hip Adduction Weight Bearing Status Weight Bearing Status Weight Bear as Tolerated M3 PT-IP Subjective Start: 01/02/19 10:36 Freq: NEEDED Status: Active Protocol: Document 01/03/19 12:39 SA (Rec: 01/03/19 12:49 SA [id number]) Subjective Physical Therapy Visit Type Type Treatment Note Visit Start Time 10:55 Visit Stop Time 11:25 Total Visit Minutes 30 Number of CHILD CARE ASSOCIATE TEACHER Visits 1 Physical Therapy Visit Comments Patient Comments Pt agreeable to PT this AM, daughter/caregiver present for caregiver training. Patient Goals Home today with daughter Therapy Pain Assessment Pain When Pain Assessed During Mobility Pain Present Pain Present Pain Reported Location Right Hip Intensity 2 Scale Used Numeric (1 - 10) Pain Management Techniques Apply Cold Re-positioning Timing of Activity with Medications M4 PT-IP Mobility and Gait Start: 01/02/19 10:36 Freq: NEEDED Status: Active Protocol: Document 01/03/19 12:39 SA (Rec: 01/03/19 12:49 [id number]) PT-Bed Mobility Assessment Supine to Sit Supine to Sit Contact Guard Assistance Sit to Supine Sit to Supine Contact Guard Assistance Scooting Scooting to Edge of Bed Standby Assistance Scooting Up and Down in Bed Standby Assistance PT-Transfer Assessment Sit to and From Stand Sit to and from Stand Contact Guard Assistance 1 Person Assistance Equipment Transfer Assistive Device Gait Belt Front Wheeled Walker Transfers Transfer Destination Bed Transfer Technique walked Transfer Ability Level of Assist Contact Guard Assistance 1 Person Assistance Use of Upper Extremities Comments Mobility Comments Review and practice of Supine< >sit transition. Agreed that getting in/out of bed on her L side of bed is easiest, educated patient and caregiver with use of gait belt as leg morning news producer and review of hip precautions with bed mobility. Pt CGA with transfers and reports minimnal pain with Wbing. Gait Assessment Gait Gait Assistance Required: Contact Guard Assist Distance (Feet) 165 Assistive Devices Assistive Device Gait Belt Front Wheeled Walker Gait Deviations General Gait Pattern Antalgic Factors Limiting Gait Function Factors Limiting Gait Function Decreased Strength Pain Comments Gait Comments Gait with FWW and SBA-CGA with cues for upright posture and increasing LLE step length. Pt improved with practice and uses FWW safely, is easily distracted and daughter provides appropriate cues. Stair Climbing Assessment Comments Stair Climbing Comments Pt and daughter report no stairs to enter/exit home. PT-Balance Assessment Sitting Balance and Reactions Static Sitting Balance Ability Normal Dynamic Sitting Balance Ability Good M5 PT-IP Objective Assessments Start: 01/02/19 10:36 Freq: NEEDED Status: Active Protocol: Document 01/02/19 11:40 RS (Rec: 01/02/19 15:09 RS [id number]) Orientation Orientation/Cognition Level of Alertness Alert Orientation Name Age Birthday Month Date Year Day of Week Place Situation Language Function Ability No Deficits Noted Safety Awareness Understands Safety Issues Gross Range of Motion Upper Extremity ROM Assessment Within Functional Limits Lower Extremity ROM Assessment Within Functional Limits Impairments within hip precautions Strength Upper Extremity Strength Assessment Within Functional Limits Lower Extremity Strength Assessment Right Impaired Comments Strength Comments RLE not formally tested, functionally demonstrating at least 3+/5 grossly Sensation Assessment Sensation Light Touch Intact M6 PT-IP Treatment Start: 01/02/19 10:36 Freq: NEEDED Status: Active Protocol: Document 01/03/19 12:39 SA (Rec: 01/03/19 12:49 [id number]) Physical Therapy Treatment Exercises Exercises Ankle Pumps Gluteal Sets Quad Sets Heel Slides Supine Hip Abduction Education Education Provided Precautions Weight Bearing Status Post-Op Packet Safety Other Treatments Other Treatment Performed Caregiver training with daughter for safe transfers, bed mobility, gait and posterior hip precautions. M7 PT-IP Assessment and Plan Start: 01/02/19 10:36 Freq: NEEDED Status: Active Protocol: Document 01/03/19 12:39 SA (Rec: 01/03/19 12:49 [id number] Summary Assessment and Plan Potential Rehabilitation Potential Excellent Status of Condition at Evaluation Stable Summary Impairments Strength Balance Bed Mobility Transfers Gait Activity Tolerance Progress Towards Goals Progressing Toward Goals Assessment Summary Probable d/c home this afternoon with daughter/ caregiver. Pt safe with mobility with FWW but needs reminders for hip precautions, daughter is very aware and does well providing reminders. Goals Bed Mobility Goal Standby Assistance Transfer Goal Standby Assistance Front Wheeled Walker Four Wheeled Walker Gait Goal Standby Assistance Front Wheel Walker Four Wheel Walker Days to Meet Goals 2 Frequency of Treatment Frequency Of Treatment Twice a Day Recommendations To Nursing Amount of Assist Needed 1 Person Assist Discharge Recommendations PT Discharge Recommendations Home with 30/05 Assist Outpatient PT
[2019-01-03] MEDS: TRAMADOL 50 MG TABLET PO (13:43)
[2019-01-03] MEDS: OXYCODONE IR 5 MG TABLET PO (13:57)
--- NOTE | 2019-01-03 14:16 | CM.DPNOTE ---
DCP: continued: case received and discussed in Team Rounds. Ortho PA Korin and therapy team note pt safe for d/c to [place] today ([place] Met then with pt in followup. She reports she is looking forward to getting home and that her daughter is here to take her and to stay with her for 2 weeks. She has OUTPT PT set up at clinic on [address]. MART[facility]NEZ# 2 presented, signature obtained and document given to AA for further process in the morning.
== END 2019-01-03 14:06 | disposition home or self-care (01) | DRG 470 ==
PROVIDERS: Physician Assistant; Admitting Provider Orthopaedic Surgery; Family Provider Family Medicine; PCP Family Medicine; Visit Provider Orthopaedic Surgery
PROC: 0SR90JZ Replacement of Right Hip Joint with Synthetic Substitute, Open Approach (ICD-10-PCS; CPT 27130; principal; 2019-01-01 13:45)
DX: M16.11 Unilateral primary osteoarthritis, right hip (principal); G14 Postpolio syndrome; Z87.891 Personal history of nicotine dependence
CPT/HCPCS: 36415; 73502; 85014; 85018; 85027; 94760; 94762; 97110; 97116; 97161; 97530; C1776; C9290; J0171; J0690; J1100; J2250; J2274; J2405; J2704; J3370